=== PATIENT | male | born 1970 | race American Indian/Alaskan Native ===

== ENCOUNTER 2020-09-02 16:18 | Emergency (ER) | payer SELFPAY ==
[2020-09-02 16:48] VITALS: BP 176/106
== END 2020-09-02 20:20 | disposition left against medical advice (07) ==
LOC: ED 16:18
DX: N50.82 Scrotal pain (principal); Z53.21 Procedure and treatment not carried out due to patient leaving prior to being seen by health care provider

== ENCOUNTER 2020-09-10 12:50 | Emergency (ER) | payer MEDICAID ==
[2020-09-10] MEDS ORDERED: ONDANSETRON 4 MG/2 ML INJ IV ONE (13:05)
[2020-09-10] MEDS ORDERED: MORPHINE 2 MG/1 ML INJ IV ONE (13:05)
--- NOTE | 2020-09-10 13:06 | Emergency Department Report ---
ED Male HPI - General Stated complaint: TESTICAL SWELLING Time Seen by Provider: 09/10/20 13:03 - History of Present Illness Initial comments: 50-year-old male, no past medical history, presents to ED with scrotal pain and progressive swelling x2 weeks. Patient states pain is worse on the left side. He denies any trauma, abdominal pain, fever, or urethral discharge. MD Complaint: testicle swelling, groin pain -: week(s) (2) Location: left testicle Radiation: none Severity: severe Quality: aching Consistency: constant Improves with: none Worsens with: none swelling. denies: discharge, dysuria, fever, nausea/vomiting - Related Data Previous Rx's Medication Instructions Recorded Last Taken Type Amlodipine Besylate [Norvasc] 5 mg PO QDAY #30 tablet 09/10/20 Unknown Rx Naproxen [Naprosyn] 500 mg PO BID #20 tablet 09/10/20 Unknown Rx traMADoL [Ultram] 50 mg PO Q6HR PRN #7 tablet 09/10/20 Unknown Rx Allergies Allergy/AdvReac Type Severity Reaction Status Date / Time No Known Allergies Allergy Verified 09/10/20 13:34 ED Review of Systems ROS: Stated complaint: TESTICAL SWELLING Other details as noted in HPI Comment: All other systems reviewed and negative Constitutional: denies: fever Gastrointestinal: denies: abdominal pain, nausea, vomiting Genitourinary: as per HPI ED Past Medical Hx - Medications Home Medications: Home Medications Medication Instructions Recorded Confirmed Last Taken Type Amlodipine Besylate [Norvasc] 5 mg PO QDAY #30 tablet 09/10/20 Unknown Rx Naproxen [Naprosyn] 500 mg PO BID #20 tablet 09/10/20 Unknown Rx traMADoL [Ultram] 50 mg PO Q6HR PRN #7 tablet 09/10/20 Unknown Rx ED Physical Exam - General General appearance: alert, in no apparent distress - Head Head exam: Present: atraumatic, normocephalic - Eye Eye exam: Present: normal appearance, EOMI - ENT ENT exam: Present: mucous membranes moist - Neck Neck exam: Present: normal inspection - Respiratory Respiratory exam: Present: normal lung sounds bilaterally. Absent: respiratory distress - Cardiovascular Cardiovascular Exam: Present: regular rate, normal rhythm - GI/Abdominal GI/Abdominal exam: Present: soft. Absent: distended, tenderness - exam: Present: testicular tenderness (left sided), scrotal swelling, other (Toshia RN present for exam) External exam: Present: swelling, other (firm). Absent: erythema, lesions, lacerations, ecchymosis, bleeding - Extremities Exam Extremities exam: Present: normal inspection - Neurological Exam Neurological exam: Present: alert, oriented X3 - Psychiatric Psychiatric exam: Present: normal affect, normal mood - Skin Skin exam: Present: warm, dry, intact, normal color ED Course Vital Signs 09/10/20 09/10/20 09/10/20 13:33 14:44 15:08 Temperature 98.2 F Pulse Rate 114 H 117 H 97 H Blood Pressure 188/119 188/128 160/125 [Left] O2 Sat by Pulse 96 98 Oximetry 09/10/20 15:59 Temperature Pulse Rate 97 H Blood Pressure 152/104 [Left] O2 Sat by Pulse 98 Oximetry ED Medical Decision Making - Lab Data Result diagrams: 09/10/20 13:28 09/10/20 13:28 - Radiology Data Radiology results: report reviewed, image reviewed - Medical Decision Making 50-year-old male reports scrotal swelling over the last 2 weeks. Denies any trauma to his groin area. Patient has severe swelling to the left testicle with tenderness. Area is firm. There are no skin changes. Ultrasound report is hematoma versus mass. Patient denies any trauma, so hematoma is less likely. Urine is negative. Patient advised to follow-up with urology. He will be discharged with prescriptions for pain and also blood pressure management. Return precautions given. - Differential Diagnosis Varicocele, hydrocele, malignancy, epididymitis Critical care attestation.: If time is entered above; I have spent that time in minutes in the direct care of this critically ill patient, excluding procedure time. ED Disposition Clinical Impression: Uncontrolled hypertension, Testicular mass Disposition: - TO HOME OR SELFCARE Is pt being admited?: No Condition: Stable Instructions: Scrotal Swelling, Testicular Self-Exam, [id number]-[id number], Hypertension, Adult, Hypertension (ED) Prescriptions: Naproxen [Naprosyn] 500 mg PO BID #20 tablet Amlodipine Besylate [Norvasc] 5 mg PO QDAY #30 tablet traMADoL [Ultram] 50 mg PO Q6HR PRN #7 tablet PRN Reason: Pain Referrals: CARLOS GU MD [Staff Physician] - 3-5 Days [facility] [Provider Group] - 3-5 Days [facility] [Outside] - 3-5 Days
[2020-09-10 13:55] LABS: Basophils # (Auto) 0.1 K/mm3 (0.0-0.1); Eosinophils % (Auto) 0.5 % (0.0-4.3); Hemoglobin 10.1 gm/dl (11.8-15.2); Lymphocytes # (Auto) 0.7 K/mm3 (1.2-5.4); Lymphocytes % (Auto) 11.6 % (13.4-35.0); Mean Corpuscular HGB Conc 35 % (32-34); Mean Corpuscular Volume 82 fl (84-94); Monocytes # (Auto) 0.8 K/mm3 (0.0-0.8); Platelet Count 485 K/mm3 (140-440); Red Blood Count 3.55 M/mm3 (3.65-5.03); Red Cell Distribution Width 16.1 % (13.2-15.2)
[2020-09-10 14:08] LABS: BUN/Creatinine Ratio 24; Blood Urea Nitrogen 24 mg/dL (9-20); Calcium 8.4 mg/dL (8.4-10.2); Hemolysis Index 7
--- NOTE | 2020-09-10 14:23 | Ultrasound Report ---
US testicular doppler comp INDICATION / CLINICAL INFORMATION: swelling. COMPARISON: None available. FINDINGS -- RIGHT TESTIS: Size = 4.8 cm. - Appearance: Heterogeneous echotexture. - Cyst or Mass: None. - Color Doppler Flow: No significant abnormality. EPIDIDYMIS: No significant abnormality. HYDROCELE: None. VARICOCELE: None demonstrated. FINDINGS -- LEFT The left testicle is markedly abnormal. The left testicle is predominantly replaced by a large 9.1 cm lobulated heterogeneous lesion which does not contain internal vascularity. There is a smaller 3.9 p eripherally calcified collection without internal vascularity. ADDITIONAL FINDINGS: None. IMPRESSION: 1. Left testicle is markedly abnormal. There is a large lesion seen occupying the majority of the cullen ticle which does not contain internal vascularity and thus could represent a hematoma. A mass is cons idered less likely given the lack of internal vascularity. Correlate for history of trauma. If no t rauma is present follow up with urology is recommended. Signer Name: Mansoor Vega MD Signed: 09/10/2020 2:19 PM Workstation Name: [id number]
[2020-09-10 15:11] LABS: Bilirubin,Urine NEG (Negative); Blood,Urine NEG (Negative); Color,Urine Yellow (Yellow); Mucus,Urine FEW /HPF; Protein,Urine <15 mg/dL mg/dL (Negative); Urobilinogen,Urine < 2.0 mg/dL (<2.0)
[2020-09-10 15:59] VITALS: BP 152/104
== END 2020-09-10 16:04 | disposition home or self-care (01) ==
LOC: ED 12:50
DX: I10 Essential (primary) hypertension (principal); N50.89 Other specified disorders of the male genital organs; Z79.899 Other long term (current) drug therapy
CPT/HCPCS: 36415; 80048; 81001; 85025; 93975; 96374; 96375; 99284; J2270; J2405